=== PATIENT | male | born 1975 | race Caucasian/White ===

== ENCOUNTER 2019-02-05 02:05 | Emergency (ER) | payer OTHER ==
[~2019-02-05] VITALS: Ht 167.6 cm; Wt 72.7 kg
[2019-02-05] MEDS ORDERED: MORPHINE 4 MG/ML 1ML VIAL/SYRINGE (J2270) As Ordered ONE (02:24)
[2019-02-05] MEDS ORDERED: OXYC10TA3 PO ×2 (02:24→08:52)
[2019-02-05] MEDS ORDERED: ONDANSETRON 4MG/2ML VIAL (J2405) As Ordered ONE (02:24)
[2019-02-05] MEDS: MORPHINE 4 MG/ML 1ML VIAL/SYRINGE (J2270) IV PRN ×2 (02:25→03:10)
[2019-02-05] MEDS ORDERED: ONDANSETRON 4MG/2ML VIAL (J2405) IV ONE ×2 (02:30→08:00)
[2019-02-05] MEDS ORDERED: NS 1,000 ML IV SCH ×2 (03:30→07:32)
[2019-02-05] MEDS: HYDROMORPHONE HCL 0.5 MG/ 0.5 ML SYRINGE (J1170 PER 1) IV PRN ×2 (04:11→07:06)
[2019-02-05] MEDS ORDERED: MORPHINE 4 MG/ML 1ML VIAL/SYRINGE (J2270) IV ONE (08:00)
--- NOTE | 2019-02-05 08:12 | REP ---
Right forearm three views History: Deformity There is a nondisplaced comminuted fracture of the distal radius. There is no dislocation. The joint spaces are normal in appearance. Impression: Nondisplaced comminuted fracture of the distal radius. Electronically Signed by Ilya Hamilton MD 02/05/2019 08:04 A
[2019-02-05] MEDS: PROPOFOL 200 MG/20 ML VIAL IV PRN ×4 (08:27→08:32)
--- NOTE | 2019-02-05 08:39 | REP ---
RIGHT WRIST, FOUR VIEWS: HISTORY: Deformity. There is a comminuted fracture of the distal radius. There is minimal lateral displacement of a distal fracture fragment. There is no dislocation. The joint spaces are normal in appearance. IMPRESSION: Comminuted fracture of the distal radius. Electronically Signed by Ilya Hamilton MD 02/05/2019 08:42 A
--- NOTE | 2019-02-05 09:14 | REP ---
Portable right wrist, two views: Comparison is from earlier today. There is a plaster cast stabilizing the fracture of the distal radius in satisfactory position alignment. Electronically Signed by Mik Ma MD 02/05/2019 09:06 A
[2019-02-05 09:36] VITALS: BP 168/104
--- NOTE | 2019-02-07 16:44 | ER ---
DATE OF CONSULTATION: 02/05/2019 CHIEF COMPLAINT: Right wrist pain and deformity. HISTORY OF PRESENT ILLNESS: This 43-year-old male was up here for a fishing trip from near the [facility], fishing for steel head, woke up in the morning to go out and slipped on ice on the trailer step and fell on his outstretched right upper extremity. He works doing maintenance and building management type activities. He is right handed. He does anticipate traveling back to near his home where he has an established orthopedic provider near the [facility]. He anticipates traveling back on Thursday or Thursday. He had had some alcoholic beverages, and he was felt to be mildly intoxicated by the emergency room (ER). He was allowed to rest in the emergency room for a couple hours prior to our examination so that we could effectively implement conscious sedation. I worked with Dr. Guillory on that. His ER record is reviewed and amended to chart. Medical history is significant for chronic pain and does take apparently, according to [facility], three to four oxycodone 10 mg per day. Imaging studies reflect a displaced, mildly comminuted distal radius fracture with loss of volar tilt. CLINICAL EXAMINATION: Alert, oriented and cooperative. Mood and affect appropriate. While there is displacement, there is no significant edema and this injury had happened approximately 5 hours prior. No open wounds. No fracture blisters. Pulse palpable. Can move the fingers. Contralateral side appears to be uninvolved. Appears to be an isolated injury. IMPRESSION: Distal radius fracture, displaced. RECOMMENDATIONS: I talked with the patient about management. In my opinion, ultimately many 43-year-old people will elect for operative fixation, such as placement of a plate, which could eliminate the need for a long-arm cast and even a short-arm cast. Sometimes after the plate, we apply a splint for a couple of weeks and then get the wrist moving. I think he would be a good candidate for that. However, I think he is planning to return to near the [facility], and the best intervention I think that we should do here would be a closed reduction and immobilization. Because the patient does not have significant swelling about 5 hours after the accident, I would recommend going ahead and doing the closed reduction, putting him in a long-arm cast that is well padded. Next, Dr. Guillory worked with respiratory for conscious sedation. Prior to conscious sedation, again I talked to the patient about management. We talked about swelling and sometimes there is swelling and if the swelling produces any numbness, he has to return and have the cast split and he voiced an understanding of that as well. He wanted to proceed with closed reduction, so once Dr. Guillory had implemented conscious sedation, and the patient was very comfortable, I did implement a reduction maneuver, reducing the fracture. I then placed the patient in a long-arm plaster cast and got postreduction x-rays, which reflected a marked improvement in overall alignment. Next, once the conscious sedation had lifted, I was able to talk to the patient about our plans. I would be happy to see him at any time, but follow up with me will be as needed since he is going back towards [place]. I recommend that he be seen between the next 1-3 days to talk to a surgeon there to see whether or not he wants to elect for an operative intervention or continue with casting. He was comfortable with explanations. Pain management was discussed with Dr. Nascimento, the emergency room attending on at the time of discharge. For further details, please refer to the medical record.
== END 2019-02-05 09:38 | disposition home or self-care (01) ==
LOC: M ED 02:05
DX: S52.531A Colles' fracture of right radius, initial encounter for closed fracture (principal); F10.10 Alcohol abuse, uncomplicated; W10.8XXA Fall (on) (from) other stairs and steps, initial encounter; Y92.818 Other transport vehicle as the place of occurrence of the external cause; G89.29 Other chronic pain; Z88.0 Allergy status to penicillin
CPT/HCPCS: 25605; 73090; 73100; 73110; 93041; 94760; 96374; 96375; 96376; 99285; G0480; J1170; J2270; J2405